=== PATIENT | female | born 2005 | race Caucasian/White ===

== ENCOUNTER 2024-03-12 13:39 | Emergency (ER) | payer SELFPAY ==
[2024-03-12 14:27] LABS: Bilirubin Neg (Negative); Blood, Urine Negative (Negative); Clarity Cloudy (Clear); Glucose, Urine (Dipstick) Normal (Negative); Ketone, Urine 5 mg/dL (Negative); Leukocyte 100 (Negative); Nitrite Positive (Negative); Protein, Urine (Dipstick) Negative (Neg-Trace); Urobilinogen Normal mg/dL (Less than 2)
[2024-03-12 14:31] LABS: Pregnancy Test - Urine (BHCG) Negative (Negative); Pregu Control Bar Appear? YES (CONTROL BAR)
[2024-03-12 14:32] LABS: Pregu Control Background? CLEAR/WHITE (CLR/WHITE)
[2024-03-12] MEDS ORDERED: Cephalexin 250 MG CAP ONE (15:40)
[2024-03-12] MEDS ORDERED: Fluconazole 100 MG TAB PO SCH (15:45)
[2024-03-12 16:21] LABS: CAUTI Indications for Culture Pelvic or flank pain
[2024-03-12 16:22] LABS: Bacteria/HPF 3+ HPF (None Seen); Yeast-Hyphae 1+ HPF (None Seen)
[2024-03-12 16:24] LABS: Mucous/LPF 2+ LPF (<2+); Yeast-Budding Rare HPF (None Seen)
[2024-03-12 16:34] LABS: Urine Culture Reflex Yes Yes
[2024-03-13 12:18] LABS: GC by PCR, Vaginal Swab Not Detected (NotDetected)
== END 2024-03-12 16:19 | disposition home or self-care (01) ==
LOC: CSHERS 13:39
DX: B37.31 Acute candidiasis of vulva and vagina (principal); N39.0 Urinary tract infection, site not specified
CPT/HCPCS: 81001; 81025; 87086; 87480; 87510; 87591; 87660; 99283